=== PATIENT | female | born 1945 | race Caucasian/White ===

== ENCOUNTER → 2021-07-15 | Outpatient (CLI) | payer MEDICARE | LOC: KOH-I 09:42 | DX: W19.XXXA Unspecified fall, initial encounter (principal); S32.018A Other fracture of first lumbar vertebra, initial encounter for closed fracture | CPT/HCPCS: 72100 ==

== ENCOUNTER → 2021-07-21 | Outpatient (CLI) | payer MEDICARE | LOC: KOH-I 15:35 | DX: S32.010A Wedge compression fracture of first lumbar vertebra, initial encounter for closed fracture (principal); M54.50 Low back pain, unspecified; W19.XXXA Unspecified fall, initial encounter; M43.8X5 Other specified deforming dorsopathies, thoracolumbar region | CPT/HCPCS: 72148 ==

== ENCOUNTER → 2021-12-18 | Outpatient (CLI) | payer MEDICARE | LOC: MAMO 12:48 | DX: Z12.31 Encounter for screening mammogram for malignant neoplasm of breast (principal) | CPT/HCPCS: 77063; 77067 ==